=== PATIENT | male | born 1980 | race African-American/Black ===

== ENCOUNTER 2017-02-17 15:24 | Emergency (ER) | payer MEDICAID ==
[~2017-02-17] VITALS: Ht 198.1 cm; Wt 122.5 kg
[2017-02-17 15:59] LABS: Basophils # (auto) 0 uL; Basophils % (auto) 0.4 % (0.0-2.0); CONDITION Y; Eosinophils # (auto) 0.3 uL; Eosinophils % (auto) 5.1 % (0.0-7.0); Hematocrit 40.6 % (41.0-53.0); Hemoglobin 13.3 g/dL (13.5-17.5); Lymphocytes # (auto) 1.5 uL; Lymphocytes % (auto) 26.8 % (10.0-50.0); Mean Corpuscular Hemoglobin 28.6 pg (28.0-32.0); Mean Corpuscular Hgb Conc. 32.8 g/dL (32.0-36.0); Mean Corpuscular Volume 87.2 fL (80.0-100.0); Mean Platelet Volume 8.3 fL (7.4-10.4); Monocytes # (auto) 0.5 uL; Monocytes % (auto) 8.5 % (0.0-12.0); Neutrophils # (auto) 3.4 uL; Neutrophils % (auto) 59.2 % (37.0-80.0); Platelet Count (auto) 249 10^3/uL (140-450); White Blood Cell 5.7 10^3/uL (4.4-10.8)
[2017-02-17 16:23] LABS: Albumin 3.6 g/dL (3.4-5.0); BUN/Creatinine Ratio 11.5; Bilirubin, Total 0.4 mg/dL (0.2-1.0); Calcium 8.7 mg/dL (8.5-10.1); Potassium 3.9 mmol/L (3.5-5.1); Total Protein 7.2 g/dL (6.4-8.2)
[2017-02-17] MEDS ORDERED: PANTOPRAZOLE SODIUM 40 MG/10 ML VIAL IV STA (17:05)
[2017-02-17] MEDS ORDERED: SODIUM CHLORIDE 0.9% 500 ML IVB ONE (17:05)
[2017-02-17] MEDS ORDERED: IOHEXOL 300 MG/ML 100ML BOTTLE IJ ONE (17:23)
[2017-02-17 18:00] VITALS: BP 151/87
== END 2017-02-17 19:49 | disposition home or self-care (01) ==
LOC: ER 15:29
DX: R10.13 Epigastric pain (principal); R11.2 Nausea with vomiting, unspecified; F17.210 Nicotine dependence, cigarettes, uncomplicated; F12.10 Cannabis abuse, uncomplicated
CPT/HCPCS: 36415; 74177; 80053; 83690; 85025; 93005; 94761; 96361; 96374; 99285; C9113; J7040; Q9967

== ENCOUNTER 2019-10-28 14:38 | Emergency (ER) | payer SELFPAY ==
[~2019-10-28] VITALS: Ht 198.1 cm; Wt 136.1 kg
[2019-10-28] MEDS ORDERED: IBUPROFEN 800 MG TAB PO ONE ×2 (17:20→17:30)
[2019-10-28] MEDS ORDERED: cefTRIAXone SOD 1,000 MG VL IM ONE (17:30)
[2019-10-28 18:46] VITALS: BP 130/82
== END 2019-10-28 18:48 | disposition home or self-care (01) ==
LOC: ER 14:38
DX: L03.012 Cellulitis of left finger (principal); F17.210 Nicotine dependence, cigarettes, uncomplicated; F12.10 Cannabis abuse, uncomplicated
CPT/HCPCS: 10060; 26010; 73200; 96372; J0696